=== PATIENT | female | born 2000 | race Two or more races ===

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

== ENCOUNTER → 2021-01-27 | Outpatient (CLI) | payer OTHER | END | disposition home or self-care (01) | LOC: PRENATAL 09:00 | PROVIDERS: ATTEND Obstetrics & Gynecology Maternal & Fetal Medicine | DX: O26.843 Uterine size-date discrepancy, third trimester (principal); O44.03 Complete placenta previa NOS or without hemorrhage, third trimester; Z36.89 Encounter for other specified antenatal screening; Z3A.30 30 weeks gestation of pregnancy ==

== ENCOUNTER 2021-02-15 02:09 | Emergency (ER) | payer OTHER ==
[~2021-02-15] VITALS: Ht 157.5 cm; Wt 60.3 kg
[2021-02-15] MEDS ORDERED: PRENATABS RX T1 EACH (02:27)
[2021-02-15] MEDS ORDERED: CYCLOBENZAPRINE5 MG PO (06:20)
[2021-02-15] MEDS ORDERED: ACETAMINOPHEN650 M2 PO (06:20)
[2021-02-15] MEDS ORDERED: MUCINEX DM ER1 EACH PO (06:20)
== END 2021-02-15 06:22 | disposition home or self-care (01) ==
LOC: ER 02:09
DX: O26.893 Other specified pregnancy related conditions, third trimester (principal); R07.89 Other chest pain; J06.9 Acute upper respiratory infection, unspecified; Z34.03 Encounter for supervision of normal first pregnancy, third trimester

== ENCOUNTER → 2021-03-12 | Outpatient (CLI) | payer OTHER ==
[~2021-03-12] MED LIST changes: +ACETAMINOPHEN650 M2 PO; +CYCLOBENZAPRINE5 MG PO; +MUCINEX DM ER1 EACH PO; +PRENATABS RX T1 EACH
== END | disposition home or self-care (01) ==
LOC: PRENATAL 16:23
PROVIDERS: ATTEND Obstetrics & Gynecology Maternal & Fetal Medicine
DX: O26.843 Uterine size-date discrepancy, third trimester (principal); O36.8131 Decreased fetal movements, third trimester, fetus 1; O35.0XX1 Maternal care for (suspected) central nervous system malformation in fetus, fetus 1; O36.5931 Maternal care for other known or suspected poor fetal growth, third trimester, fetus 1; Z36.89 Encounter for other specified antenatal screening; Z3A.35 35 weeks gestation of pregnancy

== ENCOUNTER 2021-03-17 19:56 | Inpatient (IN) | payer OTHER ==
[~2021-03-17] VITALS: Ht 157.5 cm; Wt 61.2 kg
== END 2021-03-20 17:43 | disposition home or self-care (01) | DRG 807 ==
LOC: OB/GYN 19:56 → LDR 19:56 → OB/GYN 03-18 10:04
PROVIDERS: ADMIT Obstetrics & Gynecology; ATTEND Obstetrics & Gynecology
PROC: 3E0P7VZ Introduction of Hormone into Female Reproductive, Via Natural or Artificial Opening (ICD-10-PCS; 2021-03-17)
PROC: 10E0XZZ Delivery of Products of Conception, External Approach (ICD-10-PCS; principal; 2021-03-18)
PROC: 0HQ9XZZ Repair Perineum Skin, External Approach (ICD-10-PCS; 2021-03-18)
PROC: 0UQMXZZ Repair Vulva, External Approach (ICD-10-PCS; 2021-03-18)
PROC: 4A1HXFZ Monitoring of Products of Conception, Cardiac Rhythm, External Approach (ICD-10-PCS; 2021-03-18)
DX: O36.5930 Maternal care for other known or suspected poor fetal growth, third trimester, not applicable or unspecified (principal); Z37.0 Single live birth; O62.3 Precipitate labor; O70.0 First degree perineal laceration during delivery; O71.82 Other specified trauma to perineum and vulva; Z3A.37 37 weeks gestation of pregnancy; Z20.822 Contact with and (suspected) exposure to COVID-19

== ENCOUNTER 2021-09-04 16:13 | Emergency (ER) | payer OTHER ==
[~2021-09-04] VITALS: Ht 154.9 cm; Wt 47.6 kg
[2021-09-04] MEDS ORDERED: OSEL75CA PO (18:01)
== END 2021-09-04 18:42 | disposition home or self-care (01) ==
LOC: EMR PED 16:13 → ER 16:20 → EMR PED 16:20
DX: J09.X2 Influenza due to identified novel influenza A virus with other respiratory manifestations (principal); Z20.822 Contact with and (suspected) exposure to COVID-19

== ENCOUNTER 2021-09-06 14:30 | Emergency (ER) | payer OTHER ==
[~2021-09-06] VITALS: Ht 160 cm; Wt 56.2 kg
[~2021-09-06 14:30] MED LIST changes: +OSEL75CA PO
== END 2021-09-06 16:45 | disposition home or self-care (01) ==
LOC: EMR PED 14:30 → ER 14:34 → EMR PED 14:34
DX: B27.90 Infectious mononucleosis, unspecified without complication (principal); Z20.822 Contact with and (suspected) exposure to COVID-19